=== PATIENT | male | born 1995 | race Caucasian/White ===

== ENCOUNTER 2021-03-20 08:54 | Emergency (ER) | payer SELFPAY ==
[2021-03-20 10:15] VITALS: BP 100/72; PULSE 72; RESP 16; TEMP 36.6; O2SAT 99
--- NOTE | 2021-03-20 10:45 | ED.MALEGU ---
HPI - Male Genitourinary General Chief complaint: Unspecified Stated complaint: burning in anus, possible dehydration/constipation Source: patient Mode of arrival: ambulatory Limitations: no limitations History of Present Illness HPI Narrative: this is a 26-year-old patient that presents with some rectal discomfort, has been off and on and worsened over the last couple of days, has soft stools but occasionally has constipation. Patient has a past medical history of positive HIV and hepatitis-C, with some internal hemorrhoids. Currently having a rectal discomfort with no fever chills no abdominal pain. MD Complaint: other ( hemorrhoid) Onset (ago): month(s) Duration: constant Quality: aching Related Data Allergies Allergy/AdvReac Type Severity Reaction Status Date / Time No Known Allergies Allergy Verified 03/20/21 10:49 Review of Systems Review of Systems: All systems reviewed & are unremarkable except as noted in HPI and below PMFSH Past Medical History Medical History Hepatitis C HIV (human immunodeficiency virus infection) Exam Const: General: cooperative, healthy appearing, comfortable and no acute distress HENMT: Head: normal to inspection Ears: hearing grossly normal bilaterally General nose exam: Normal external nose present Mouth: Yes Normal oral and palatal mucosa present Eyes: General: appearance normal, both eyes and all related structures Visual Hope: normal visual hope by confrontation Eyelids: eyelids normal Conjunctivae: conjunctivae normal EOM: EOMs intact bilaterally Neck: Neck: normal visual inspection, full ROM, no lymphadenopathy and no meningeal signs Chest: Chest palpation & inspection: normal inspection of the chest and normal palpation of entire chest wall Resp: Effort & Inspection: normal respiratory effort and able to speak in complete sentences Cardio: Jugular venous distension: no JVD Palpation: normal PMI Rate: regular rate Rhythm: regular rhythm Heart sounds: S1 normal heart sound present and S2 normal heart sound present GI: Inspection: normal to inspection Auscultation: normal bowel sounds Other: on rectal exam patient has internal hemorrhoids and has 1 large sclerosed external hemorrhoid. Back/Spine/Pelvis: Back: no CVA tenderness Skin: General skin exam: normal color and no rashes or lesions noted Course Course Emergency Course: Patient was evaluated and has a large external hemorrhoid. Critical Care Time Critical Care Time Critical Care Time: No Discharge Plan Discharge Clinical Impression: External hemorrhoid Patient Disposition: Home, Self-Care Condition: Stable Instructions: Antibiotic Form, Thrombosed Hemorrhoid (ED) Additional Instructions: use medicine as prescribed, and follow-up with primary care physician soon as possible for further evaluation treatment. Prescriptions: New hydrocortisone acetate [Anusol-HC] 25 mg suppository 25 mg RECTAL DAILY Qty: 12 RF: 0 hydrocortisone [Anusol-HC] 2.5 % cream with perineal applicator 1 applic RECTAL DAILY PRN (Reason: hemorrhoids) 7 Days Qty: 30 RF: 0 docusate sodium [Colace] 100 mg capsule 100 mg PO DAILY Qty: 7 RF: 0 Follow-up/Referrals: PHYSICIAN NOT ON STAFF,NONSTAFF [Primary Care Provider] - Time of Disposition: 10:51
== END 2021-03-20 11:00 | disposition home or self-care (01) ==
PROVIDERS: Emergency Provider Emergency Medicine
DX: K64.4 Residual hemorrhoidal skin tags (principal)
CPT/HCPCS: 99283